=== PATIENT | female | born 1945 | race Two or more races ===

== ENCOUNTER 2024-06-06 05:06 | Emergency (ER) | payer OTHER, MEDICAID ==
[~2024-06-06] VITALS: Ht 149.9 cm; Wt 63.0 kg
--- NOTE | 2024-06-06 06:10 | DVH ---
EXAM: CT Cervical Spine Without Intravenous Contrast CLINICAL INDICATION: Neck pain TECHNIQUE: Axial computed tomography images of the cervical spine without intravenous contrast. Thi s CT exam was performed using one or more of the following dose reduction techniques: automated expo sure control, adjustment of the mA and/or kV according to patient size, and/or use of iterative recon struction technique. CONTRAST: COMPARISON: None FINDINGS: VERTEBRAE: Degenerative facet arthropathy throughout the cervical spine. No acute fracture. DISCS/SPINAL CANAL/NEURAL FORAMINA: Degenerative disc disease throughout the cervical spine. SOFT TISSUES: Unremarkable. OTHER FINDINGS: . . IMPRESSION: 1. No acute fracture. 2. Degenerative changes of the cervical spine as described.
--- NOTE | 2024-06-06 06:32 | ECG ---
[facility] Test Date: 2024-06-06 Test Time: 05:10:32 Pat Name: ALIS ISABEL Department: ED Room: Gender: F [place]: ER : 1945 Requested By: CURTIS JOHN Order Number: [id number] Reading MD: Measurements Intervals [place] Rate: 63 P: 67 NV: 157 QRS: 74 QRSD: 89 T: 73 QT: 433 QTc: 444 Interpretive Statements Sinus rhythm Please click the below link to view image of tracing.
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
[2024-06-06 06:52] VITALS: BP 154/78; RESP 17; TEMP 97.9; O2SAT 95
[2024-06-06] MEDS ORDERED: SODIUM CHLORIDE 0.9% 1,000 ML IV ONE (07:00)
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
[2024-06-06 07:20] LABS: Basophils # (auto) 0 10 ^3/uL (0-0.2); Basophils % (auto) 0.5 % (0.0-2.0); Eosinophils # (auto) 0.2 10 ^3/uL (0-0.8); Eosinophils % (auto) 2.5 % (0.0-7.0); Hematocrit 40.2 % (36.0-46.0); Hemoglobin 13.7 g/dL (12.2-16.2); Lymphocytes # (auto) 1.6 10 ^3/uL (0.4-5.4); Lymphocytes % (auto) 23.6 % (10.0-50.0); Mean Corpuscular Hemoglobin 27.9 pg (28.0-32.0); Monocytes # (auto) 0.5 10 ^3/uL (0-1.3); Monocytes % (auto) 6.7 % (0.0-12.0); Neutrophils # (auto) 4.6 10 ^3/uL (1.6-8.6); Neutrophils % (auto) 66.7 % (37.0-80.0); Nucleated Red Blood Cells % 0.1 %; Platelet Count (auto) 239 10^3/uL (140-450); Red Cell Distribution Width 13.9 % (11.8-14.3); White Blood Cell 6.8 10^3/uL (4.4-10.8)
[2024-06-06 07:24] LABS: Chloride 105 mmol/L (98-107); Potassium 3.6 mmol/L (3.5-5.1); Sodium 140 mmol/L (136-145)
[2024-06-06 07:25] LABS: Anion Gap 8 (5-15); Calcium 10.1 mg/dL (8.7-10.4); Carbon Dioxide 27 mmol/L (20-31)
[2024-06-06 07:30] LABS: BUN/Creatinine Ratio 22.1 (10.0-20.0); Blood Urea Nitrogen 17 mg/dL (9-23)
[2024-06-06 07:34] LABS: Glucose 164 mg/dL (74-106)
[2024-06-06 07:46] VITALS: PULSE 63
[2024-06-06] MEDS ORDERED: ACET-1080 PO (07:46)
== END 2024-06-06 07:54 | disposition home or self-care (01) ==
LOC: EDBD 05:06 → ER 05:06
DX: S29.011A Strain of muscle and tendon of front wall of thorax, initial encounter (principal); S16.1XXA Strain of muscle, fascia and tendon at neck level, initial encounter; E11.9 Type 2 diabetes mellitus without complications; I10 Essential (primary) hypertension; V89.2XXA Person injured in unspecified motor-vehicle accident, traffic, initial encounter; Y93.89 Activity, other specified; Y92.410 Unspecified street and highway as the place of occurrence of the external cause; Y99.8 Other external cause status
CPT/HCPCS: 36415; 71250; 72125; 80048; 84484; 85025; 93005